=== PATIENT | male | born 1960 ===

== ENCOUNTER 2025-04-12 10:30 | Outpatient (CLI) | payer BC, SELFPAY ==
[2025-04-12 09:22] LABS: Abs Immature Grans 0.03 10^3/uL (0.0-0.06); HCT 34.8 % (40.0-50.0); HGB 11.5 g/dL (13.5-17.5); Immature Grans % 0.5 %; MCH 29.0 pg (27.0-33.0); MCHC 33.0 % (32.0-36.0); MCV 88 fL (80-95); MPV 9.4 fL (8.0-11.0); Platelet Count 174 10^3/uL (130-400); RBC 3.96 10^6/uL (4.36-5.78); RDW 13.5 % (11.8-14.1); RDW-SD 43.3 fL; WBC 6.40 10^3/uL (4.4-10.8)
[2025-04-12 09:42] LABS: ALT 24 U/L (16-63); AST 26 U/L (15-37); Albumin 3.5 g/dL (3.4-5.0); Alkaline Phosphatase 108 U/L (46-116); Anion Gap 9.4 mmol/L (3-11); BUN 20 mg/dL (7-18); Bilirubin, Total 0.3 mg/dL (0.2-1.0); CO2 28.6 mmol/L (21.0-32.0); Calcium 9.0 mg/dL (8.5-10.1); Chloride 104 mmol/L (98-107); Estimated GFR 67.53 (mL/min/1.73m2); Glucose 79 mg/dL (74-106); Potassium 4.1 mmol/L (3.5-5.1); Sodium 142 mmol/L (136-145); Total Protein 7.6 g/dL (6.4-8.2)
== END 2025-04-12 10:31 | disposition home or self-care (01) ==
LOC: LBO 10:31
PROVIDERS: Visit Provider Internal Medicine
DX: C61 Malignant neoplasm of prostate (principal)
CPT/HCPCS: 36415; 80053; 84153; 84403; 85025

== ENCOUNTER 2025-05-24 07:55 | Outpatient (RCR) | payer BC, SELFPAY ==
[2025-05-03] MEDS: Normal Saline Flush 10 ML SYR IVP (10:11)
[2025-05-03 10:23] LABS: Abs Immature Grans 0.11 10^3/uL (0.0-0.06); HCT 33.2 % (40.0-50.0); HGB 11.0 g/dL (13.5-17.5); Immature Grans % 1.2 %; MCH 29.3 pg (27.0-33.0); MCHC 33.1 % (32.0-36.0); MCV 89 fL (80-95); MPV 9.8 fL (8.0-11.0); Platelet Count 169 10^3/uL (130-400); RBC 3.75 10^6/uL (4.36-5.78); RDW 14.7 % (11.8-14.1); RDW-SD 45.1 fL; WBC 9.04 10^3/uL (4.4-10.8)
[2025-05-03 10:45] LABS: ALT 30 U/L (16-63); AST 19 U/L (15-37); Albumin 3.6 g/dL (3.4-5.0); Alkaline Phosphatase 137 U/L (46-116); Anion Gap 6.2 mmol/L (3-11); BUN 25 mg/dL (7-18); Bilirubin, Total 0.3 mg/dL (0.2-1.0); CO2 28.8 mmol/L (21.0-32.0); Calcium 9.0 mg/dL (8.5-10.1); Chloride 105 mmol/L (98-107); Estimated GFR 84.05 (mL/min/1.73m2); Glucose 102 mg/dL (74-106); Potassium 4.4 mmol/L (3.5-5.1); Sodium 140 mmol/L (136-145); Total Protein 7.3 g/dL (6.4-8.2)
[2025-05-24 08:36] LABS: Abs Immature Grans 0.04 10^3/uL (0.0-0.06); HCT 30.5 % (40.0-50.0); HGB 10.1 g/dL (13.5-17.5); Immature Grans % 0.9 %; MCH 29.8 pg (27.0-33.0); MCHC 33.1 % (32.0-36.0); MCV 90 fL (80-95); MPV 10.3 fL (8.0-11.0); Platelet Count 165 10^3/uL (130-400); RBC 3.39 10^6/uL (4.36-5.78); RDW 15.8 % (11.8-14.1); RDW-SD 50.8 fL; WBC 4.44 10^3/uL (4.4-10.8)
[2025-05-24 08:51] LABS: ALT 19 U/L (10-49); AST 20 U/L (<34); Albumin 4.1 g/dL (3.4-5.0); Alkaline Phosphatase 123 U/L (46-116); Anion Gap 7.5 mmol/L (3-11); BUN 22 mg/dL (9-23); Bilirubin, Total 0.30 mg/dL (0.2-1.2); CO2 26.5 mmol/L (20.0-31.0); Calcium 8.7 mg/dL (8.3-10.6); Chloride 108 mmol/L (98-107); Glucose 84 mg/dL (74-106); Potassium 4.0 mmol/L (3.5-5.1); Sodium 142 mmol/L (136-145); Total Protein 6.5 g/dL (5.7-8.2)
[2025-05-24] MEDS: Normal Saline Flush 10 ML SYR IVP (08:57)
== END 2025-05-29 23:59 | disposition home or self-care (01) ==
LOC: INF 07:55
PROVIDERS: Visit Provider Internal Medicine
DX: Z45.2 Encounter for adjustment and management of vascular access device (principal); C61 Malignant neoplasm of prostate
CPT/HCPCS: 36591; 80053; 84153; 84403; 85025